=== PATIENT | male | born 1995 | race American Indian/Alaskan Native ===

== ENCOUNTER 2016-10-06 14:44 | Emergency (ER) | payer SELFPAY ==
[2016-10-06] MEDS ORDERED: MARCAINE-EPI 0.5%-1:200,000 INFILTRATI ONE (17:50)
[2016-10-06] MEDS ORDERED: NACL 0.9% IR ONE ×2 (17:50→18:40)
[2016-10-06] MEDS ORDERED: NORCO 5/325 PO ONE (17:50)
[2016-10-06] MEDS ORDERED: BOOSTRIX IM ONE (17:50)
[2016-10-06] MEDS ORDERED: TRIPLE ANTIBIOTIC TP ONE (17:50)
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
[2016-10-06] MEDS ORDERED: XYLOCAINE 1% MPF 5 mL ONE (20:15)
[2016-10-06] MEDS ORDERED: XYLOCAINE 2% INFILTRATI ONE (20:16)
[2016-10-06 22:28] VITALS: BP 137/73
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
== END 2016-10-06 22:00 | disposition home or self-care (01) ==
LOC: ED 14:44
DX: S01.81XA Laceration without foreign body of other part of head, initial encounter (principal); S00.93XA Contusion of unspecified part of head, initial encounter; F17.200 Nicotine dependence, unspecified, uncomplicated; F12.90 Cannabis use, unspecified, uncomplicated; W45.8XXA Other foreign body or object entering through skin, initial encounter; Y93.89 Activity, other specified; Y99.9 Unspecified external cause status; Y92.89 Other specified places as the place of occurrence of the external cause
CPT/HCPCS: 70150; 70360; 90471; 90715; A6250